=== PATIENT | female | born 1950 ===

== ENCOUNTER 2018-06-27 06:33 | Day surgery (SDC) | payer OTHER ==
[2018-06-25 14:53] VITALS: BMI 37.0
[2018-06-27] MEDS ORDERED: Lactated Ringer's 1,000 ML IV ONE ×2 (07:30→08:25)
[2018-06-27] MEDS ORDERED: Propofol 10 mg/ml Inj (20 ML) ONE (08:12)
[2018-06-27] MEDS ORDERED: Midazolam 2 MG/2 ML VIAL ONE (08:13)
[2018-06-27] MEDS ORDERED: ePHEDrine 50 mg/ml Inj ONE (08:33)
[2018-06-27] MEDS ORDERED: Dexamethasone 4 mg/1 ml IVP PRN (08:59)
[2018-06-27 11:16] VITALS: RESP 18
[2018-06-27 12:39] VITALS: O2SAT 98
--- NOTE | 2018-06-27 13:10 | OP ---
PROCEDURE DATE: 06/27/2018 PREOPERATIVE DIAGNOSIS: Post menopausal bleed, endometrial fibroid, polyp noted on sonogram. POSTOPERATIVE DIAGNOSIS: Post menopausal bleed, endometrial fibroid, polyp noted on sonogram. OPERATION PERFORMED: MyoSure polypectomy, myomectomy. SURGEON: Venkata Padgett MD ANESTHESIA: General. ANESTHESIA ADMINISTERED BY: Dr. Jiang . ESTIMATED BLOOD LOSS: Minimal. URINE OUTPUT: The patient was straight catheterized prior to starting the procedure. INTRAVENOUS FLUIDS: The patient received approximately 300 mL of D5 LR intraoperatively. OPERATIVE FINDINGS: Normal external female genitalia. Cervix smooth. Uterus anteverted. Grade 2 cystocele. No adnexal masses. Vagina pink, atrophic. Hysteroscopic findings were both ostia were visualized. There was an anterior wall myoma located, approximately 1 cm in size. Photographs were taken for documentation. DESCRIPTION OF PROCEDURE: After informed consent was obtained, the patient was taken to the operating room where she was prepped and draped in a normal sterile fashion. A weighted speculum was then inserted into the vagina. The cervix was visualized and grasped with a single-tooth tenaculum. The cervix was then gently dilated and the hysteroscope was inserted into the uterine cavity. There was a 1 cm anterior myoma noted. The MyoSure device was introduced into the uterine cavity, activated, and the specimen was excised without complications. All instruments were then removed from the uterine cavity. Sharp curettage was performed. Endometrial curettings were sent to Pathology. All instruments were then removed from vagina. Hemostasis was noted at the tenaculum site. Sponge, lap, needle, and instrument counts were correct x2 and the patient was taken to the recovery room in awake and stable condition. Venkata Padgett MD
[2018-06-27 13:50] VITALS: BP 127/71; PULSE 69; TEMP 97
== END 2018-06-27 13:30 | disposition home or self-care (01) ==
LOC: H.OPSURG 06:33
PROVIDERS: ATTEND Obstetrics & Gynecology Gynecology
DX: N84.0 Polyp of corpus uteri (principal); Z86.73 Personal history of transient ischemic attack (TIA), and cerebral infarction without residual deficits; E78.5 Hyperlipidemia, unspecified; D21.9 Benign neoplasm of connective and other soft tissue, unspecified; N85.8 Other specified noninflammatory disorders of uterus; Z78.0 Asymptomatic menopausal state
CPT/HCPCS: 58558; 88305; J1885; J2001; J2250; J2405; J2704; J3010; J7030; J7120